=== PATIENT | female | born 1980 | race African-American/Black ===

== ENCOUNTER 2018-04-04 22:10 | Emergency (ER) | payer OTHER ==
[~2018-04-04] VITALS: Ht 152.4 cm; Wt 71.7 kg
[2018-04-04] MEDS ORDERED: ACETAMINOPHEN-1 EAC1 PO (22:52)
[2018-04-04] MEDS ORDERED: CLEOCIN HCL300 MG PO (22:52)
[2018-04-04 23:08] VITALS: BP 139/88
== END 2018-04-04 23:09 | disposition home or self-care (01) ==
LOC: M.ERS 22:10
DX: K08.89 Other specified disorders of teeth and supporting structures (principal); Z88.0 Allergy status to penicillin

== ENCOUNTER 2018-05-10 11:07 | Emergency (ER) | payer OTHER ==
[~2018-05-10] VITALS: Ht 152.4 cm; Wt 72.6 kg
[~2018-05-10 11:07] MED LIST: ACETAMINOPHEN-1 EAC1 PO; CLEOCIN HCL300 MG PO
[2018-05-10] MEDS ORDERED: MIRENA1 EACH INTRAUTERI (11:19)
[2018-05-10] MEDS ORDERED: NORCO 5-325 TA1 EACH PO (12:52)
[2018-05-10] MEDS ORDERED: MEDROLDOSEPACK PO (12:52)
[2018-05-10] MEDS ORDERED: NABUMETONE 750750 M1 PO (12:52)
[2018-05-10 13:24] VITALS: BP 137/84
== END 2018-05-10 13:24 | disposition home or self-care (01) ==
LOC: M.ERS 11:07
DX: M54.16 Radiculopathy, lumbar region (principal); Z88.0 Allergy status to penicillin; Z88.5 Allergy status to narcotic agent

== ENCOUNTER 2018-07-14 13:00 | Inpatient (IN) | payer OTHER ==
[~2018-07-14] VITALS: Ht 152.4 cm; Wt 71.7 kg
--- NOTE | ~2018-07-14 | OP ---
[address] [address] OPERATIVE REPORT Name: TERESA BARTON Room: [address] IN M.R.#: [id number] Admission: 07/14/18 Attend Phys: Fuentes Miranda MD Discharge: Date of : 82 Report #: [id number] THIS REPORT FOR: //name// CC: [facility] physician/PCP Neri Miranda DATE OF SERVICE: 07/15/2018 PREPROCEDURE DIAGNOSIS: Acute cholecystitis. POSTPROCEDURE DIAGNOSIS: Acute cholecystitis. SURGEON: Gerri Fraser DO. ASSISTANTS: Tyrone Buenrostro, PGY-3 and Tyrone Nur MS3. OPERATION PERFORMED: Laparoscopic cholecystectomy. ANESTHESIA: General and local. ESTIMATED BLOOD LOSS: 5 mL. SPECIMEN: Gallbladder. COMPLICATIONS: None. CONDITION: Stable PACU to floor with plan for discharge later today. INDICATIONS: This is a 37-year-old female that presented to the Emergency Department with complaints of sudden-onset right upper quadrant pain after a fatty meal. She did have some associated nausea, vomiting and diarrhea. Imaging revealed a thickened gallbladder wall and pericholecystic fluid, without any signs of cholelithiasis. Treatment plan was discussed and she was informed of the risks and benefits of laparoscopic cholecystectomy including bleeding, infection, damage to intra-abdominal structures including common bile duct and need for a reoperation as well as possibility of hernia. She understood these risks and decided to proceed with surgery. TECHNIQUE: After informed consent was obtained, the patient was brought to the operating room and placed in a supine position. SCDs were applied. Preoperative antibiotics were given. General anesthesia was administered. The patient was prepped and draped in the usual sterile fashion. Surgical pause was held to confirm proper patient and procedure. A 0.5% Marcaine was used to infiltrate the infraumbilical skin. This was elevated with 2 Adson's and incised with a #11 blade. Dissection was carried down to [place] [address] OPERATIVE REPORT Name: ORALIATERESAIGLESIA GARCIA Room: [address] IN ..#: [id number] Admission: 07/14/18 Attend Phys: Fuentes Miranda MD Discharge: Date of : 82 Report #: [id number] The fascia was elevated with 2 Kochers and incised with cautery. Finger was introduced into the abdomen and swept to confirm intraperitoneal location as well as no underlying adhesions. A single 0 Vicryl stitch was placed on either side of the fascia. This was used to secure the Mary port, which was introduced under direct visualization into the abdomen and secured with the stitches. The abdomen was insufflated. The camera was introduced and attention was turned to the right upper quadrant. The hepatic flexure and transverse colon were dilated. These were obscuring the view of the gallbladder. The 11-mm epigastric port was placed under direct visualization. A blunt grasper was used to sweep the colon out of view. The patient was positioned head up and right side up. The additional right upper quadrant ports, two 5-mm ports were placed as well under direct visualization. The gallbladder was then elevated. It was not noted to be acutely inflamed. There were no adhesions to the gallbladder, but there was some ascitic fluid in the right upper quadrant. After the gallbladder was elevated, the peritoneum overlying the hepatocystic triangle was taken down with cautery. The cystic duct and cystic artery were isolated using a combination of cautery and [place] dissection. The critical view of safety was achieved with two and only two structures entering the gallbladder. The cystic duct and artery were both clipped and then cut with laparoscopic scissors. The gallbladder was then carefully dissected free of the liver bed, it was then placed into the right upper quadrant. EndoCatch bag was placed through the umbilical port and the gallbladder was placed within it. This was set aside. The liver bed was then reflected superiorly and some raw portions of the liver bed were cauterized. This was noted to be hemostatic. The clips were once more inspected and noted to be intact, with no bile or blood oozing from either of the clips. The suction police shift commander was used to suction and irrigate the right upper quadrant. The two right upper quadrant and epigastric ports were removed and the peritoneum was visualized, with no bleeding apparent. The abdomen was desufflated. The Mary port was removed as well as the specimen within the EndoCatch bag. This was given off to the back table to be sent to pathology. The previous stay sutures were elevated and replaced with Harsha's. A single rnabeo-ch-bbcuy with 0 Vicryl was placed to close the fascia at the umbilicus. Additional 0.5% Marcaine was placed into the fascia at the umbilical site. The remaining 0.5% Marcaine was used at the other port sites for a total volume of 50 mL used. A 4-0 Monocryl was used to close all skin. Wounds were cleansed and dressed with Mastisol, Steri-Strips, 4 x 4's and Tegaderms. The patient tolerated the procedure well. All counts were correct at the close of the case. She was emerged from anesthesia and transferred to the PACU in stable condition, with plans to discharge later today. By: [id number] Buenrostro DO /john
[~2018-07-14 13:00] MED LIST changes: +MEDROLDOSEPACK PO; +MIRENA1 EACH INTRAUTERI; +NABUMETONE 750750 M1 PO; +NORCO 5-325 TA1 EACH PO
[2018-07-14 13:12] VITALS: BP 131/85
[2018-07-14 13:23] LABS: URINE BILIRUBIN NEGATIVE (Negative); URINE BLOOD NEGATIVE (Negative); URINE CLARITY CLEAR; URINE COLOR YELLOW; URINE GLUCOSE-RANDOM NEGATIVE (Negative); URINE KETONES NEGATIVE (Negative); URINE LEUKOCYTES-REFLEX NEGATIVE (Negative); URINE NITRITE-REFLEX NEGATIVE (Negative); URINE PROTEIN 1+ (Negative); URINE SPECIFIC GRAVITY >= 1.030 (1.005-1.030); URINE UROBILINOGEN 0.2 E.U./dl (0.2-1.0)
[2018-07-14 13:33] LABS: ABSOLUTE BASOPHILS 0.1 thou/uL (0.0-0.2); ABSOLUTE LYMPHOCYTES 1.3 thou/uL (0.8-5.3); ABSOLUTE MONOCYTES 0.5 thou/uL (0.0-1.2); ABSOLUTE NEUTROPHILS 7.5 thou/uL (1.6-8.1); BASOPHILS 0.7 %; EOSINOPHILS 0.2 %; HEMATOCRIT 32.9 % (37.0-47.0); LYMPHOCYTES 13.7 %; MCH 21.1 pg (26.0-34.0); MCHC 30.5 g/dL (28.0-37.0); MCV 69.3 fL (80.0-100.0); MONOCYTES 5.5 %; MPV 9.8 fl. (7.2-11.1); NUCLEATED RBCS 0 /100WBC; PLATELET COUNT* 314 thou/uL (150-400); POLYS 79.9 %; RBC 4.74 mil/uL (4.20-5.00); RDW-CV 19.4 % (10.5-14.5); WBC 9.3 thou/uL (4.0-11.0)
[2018-07-14 13:55] LABS: CALCIUM 8.5 mg/dL (8.5-10.1); CREATININE 0.8 mg/dL (0.6-1.3); POTASSIUM 4.2 mmol/L (3.5-5.1)
[2018-07-14 13:59] LABS: ALBUMIN 3.9 g/dL (3.4-5.0); TOTAL BILIRUBIN 0.3 mg/dL (<0.1-1.0); TOTAL PROTEIN 8.5 g/dL (6.4-8.2)
[2018-07-14 14:24] LABS: PLATELET ESTIMATE ADEQUATE
[2018-07-14 14:25] LABS: ANISOCYTOSIS 2+; HYPOCHROMASIA 2+; MICROCYTES 2+
[2018-07-14] MEDS ORDERED: BENTYL 20 MG TA20 M1 PO (14:46)
[2018-07-14] MEDS ORDERED: ZOFRAN4 MG PO (14:46)
[2018-07-14 21:20] VITALS: BP 100/58
[2018-07-14 21:22] VITALS: BP 113/78
[2018-07-15 04:44] LABS: ALBUMIN 2.9 g/dL (3.4-5.0); CALCIUM 7.9 mg/dL (8.5-10.1); CREATININE 0.7 mg/dL (0.6-1.3); MAGNESIUM 1.9 mg/dL (1.8-2.4); PHOSPHORUS* 2.5 mg/dL (2.5-4.9); POTASSIUM 3.8 mmol/L (3.5-5.1); TOTAL BILIRUBIN 0.2 mg/dL (<0.1-1.0); TOTAL PROTEIN 6.4 g/dL (6.4-8.2)
[2018-07-15 04:46] LABS: ABSOLUTE EOSINOPHILS 0.1 thou/uL (0.0-0.7); ABSOLUTE LYMPHOCYTES 1.6 thou/uL (0.8-5.3); ABSOLUTE MONOCYTES 0.5 thou/uL (0.0-1.2); ABSOLUTE NEUTROPHILS 3.5 thou/uL (1.6-8.1); BASOPHILS 0.7 %; EOSINOPHILS 1.5 %; HEMATOCRIT 25.7 % (37.0-47.0); LYMPHOCYTES 28.4 %; MCH 20.9 pg (26.0-34.0); MCHC 30.2 g/dL (28.0-37.0); MCV 69.3 fL (80.0-100.0); MONOCYTES 9.3 %; MPV 9.8 fl. (7.2-11.1); NUCLEATED RBCS 0 /100WBC; POLYS 60.1 %; RBC 3.71 mil/uL (4.20-5.00); RDW-CV 19.2 % (10.5-14.5); WBC 5.8 thou/uL (4.0-11.0)
[2018-07-15 04:47] LABS: HEMOGLOBIN 7.8 gm/dL (12.0-15.0); PLATELET COUNT* 231 thou/uL (150-400)
[2018-07-15 07:47] VITALS: BP 113/78; BP 116/72
[2018-07-15] MEDS ORDERED: IRON325 PO (10:33)
[2018-07-15] MEDS ORDERED: NORCO 5-325 TA1 EACH PO (15:26)
[2018-07-15 15:38] VITALS: BP 116/72
--- NOTE | 2018-07-21 10:05 | PATH ---
[address] [address] PATHOLOGY RPT PROCEDURE Name: MYRA BARTON Room: [address] IN M.R.#: [id number] Admission: 07/14/18 Date of : 82 Discharge: 07/15/18 Report #: [id number] Path Case #: [id number] [facility] Accession Number: [id number] . 01 Material submitted: . GALLBLADDER . 01 Clinical history: . Cholecystitis . 02 Diagnosis: Gallbladder: - Chronic cholecystitis with scant attached benign liver tissue and with benign sentinel lymph node. (DEONDRE/db; 07/18/2018) LBQ/07/18/2018 . 02 Electronically signed: . Juan Manuel Fisher MD, Pathologist NPI- [id number] . 01 Gross description: . The specimen is received in formalin, labeled "Sagar, Myra, gallbladder", is an intact gallbladder measuring 6.0 x 3.2 x 2.0 cm with a glistening, green-pierre serosa. Within the cystic duct region there is a pacheco-brown rubbery 0.4 x 0.3 possible lymph node identified. The lumen is filled with yellow-green viscous bile and no discrete calculi. The mucosa is velvety green and the wall measures up to 0.1 cm thick. No discrete masses are identified. Tube Coremaker tissue is submitted in A1. ([facility]; 07/15/2018) [facility]/ . 02 Pathologist provided ICD-10: K81.1 . 02 CPT . 719292 Specimen Comment: A courtesy copy of this report has been sent to Specimen Comment: [phone], . Specimen Comment: Report sent to / DR LABOY Specimen Comment: A duplicate report has been generated due to demographic updates. Performed at: [address] [id number] MD Eris Pelayo MD Phone: [phone] Performed at: [address] [place] [address] PATHOLOGY RPT PROCEDURE Name: MYRA BARTON JOSE Room: [address] DIS IN M.R.#: [id number] Admission: 07/14/18 Date of : 82 Discharge: 07/15/18 Report #: [id number] Path Case #: [id number] [address], GLYNN Ortiz [id number] MD Juan Manuel Fisher MD Phone: [phone]
== END 2018-07-15 17:18 | disposition home or self-care (01) | DRG 419 ==
LOC: M.ERS 13:00 → M.TBA-ER 18:37 → M.3W 18:37
PROVIDERS: Nurse Practitioner Family; Surgery; ADMIT Family Medicine
PROC: 0FT44ZZ Resection of Gallbladder, Percutaneous Endoscopic Approach (ICD-10-PCS; principal; 2018-07-15)
DX: K81.0 Acute cholecystitis (principal); D50.9 Iron deficiency anemia, unspecified; Z79.1 Long term (current) use of non-steroidal anti-inflammatories (NSAID); Z79.899 Other long term (current) drug therapy; Z88.0 Allergy status to penicillin; Z88.5 Allergy status to narcotic agent; Z80.0 Family history of malignant neoplasm of digestive organs; Z82.49 Family history of ischemic heart disease and other diseases of the circulatory system; Z83.3 Family history of diabetes mellitus